=== PATIENT | male | born 1965 | race Caucasian/White ===

== ENCOUNTER 2025-04-30 18:24 | Emergency (ER) | payer BC ==
[2025-04-30 18:34] VITALS: BMI 25.5
[2025-04-30 19:18] LABS: ABSOLUTE IMMATURE GRANULOCYTES 0.04 x10^3/uL (0.0-0.031); BASOPHILS # 0.04 x10^3/uL (0.01-0.08); EOSINOPHIL % 0.1 % (0.8-7.0); EOSINOPHILS # 0.01 x10^3/uL (0.04-0.54); HEMATOCRIT 43.5 % (40.1-51.0); HEMOGLOBIN 14.3 g/dL (13.7-17.5); MCHC 32.9 g/dl (32.3-36.5); MEAN CELL VOLUME 86.5 fl (79.0-92.2); MEAN PLT VOLUME 8.9 fl (9.4-12.4); MONOCYTE # 1.16 x10^3/uL (0.30-0.82); MONOCYTE % 9.1 % (5.3-12.2); PLATELET COUNT 208 x10^3/uL (163-337); RDW 12.6 % (12.2-16.1)
[2025-04-30 19:27] LABS: INR 1.06 (0.83-1.09); PROTHROMBIN TIME (PATIENT) 11.7 SEC (9.7-13.0)
[2025-04-30] MEDS ORDERED: DEXAMETHASONE SOD PHOSPHATE 10 MG/1 ML VIAL ONE (19:29)
[2025-04-30 19:30] LABS: ACTIVATED PTT 35.9 SECONDS (25.2-36.5)
[2025-04-30] MEDS ORDERED: ACETAMINOPHEN INJECTION 100 ML ONE (19:30)
[2025-04-30] MEDS: DEXAMETHASONE SOD PHOSPHATE 10 MG/1 ML VIAL IVPUSH ONE (19:37)
[2025-04-30] MEDS: ACETAMINOPHEN 1000 MG/100 ML BAG IVPB ONE (19:37)
[2025-04-30 19:44] LABS: THROAT:GRP A STREP NOT DETECTED (NOTDETECTED)
[2025-04-30 19:55] LABS: POTASSIUM 3.6 mmol/L (3.5-5.1)
[2025-04-30 19:57] LABS: CALCIUM 9.6 mg/dL (8.5-10.1)
[2025-04-30 19:58] LABS: ALBUMIN 3.8 g/dl (3.4-5.0); BLOOD UREA NITROGEN 7.6 mg/dL (7-18)
[2025-04-30 20:01] LABS: CREATININE 0.8 mg/dL (0.55-1.3)
[2025-04-30 20:02] LABS: BILIRUBIN,TOTAL 0.6 mg/dL (0.2-1)
[2025-04-30 20:03] LABS: TOT PROT 7.4 g/dl (6.4-8.2)
[2025-04-30] MEDS ORDERED: KETOROLAC TROMETHAMINE 30 MG/1 ML VIAL ONE (20:43)
[2025-04-30] MEDS: KETOROLAC TROMETHAMINE 30 MG/1 ML VIAL IVPUSH ONE (21:05)
[2025-04-30] MEDS: CLINDAMYCIN 600MG PREMIX IVPB 600 MG/50 ML BAG IVPB ONE (21:28)
[2025-04-30 22:38] VITALS: BP 137/82; PULSE 61; RESP 18; TEMP 99.1
== END 2025-04-30 23:05 | disposition short-term general hospital (02) ==
LOC: JERFT 18:24 → JER 18:24 → JERFT 23:05
PROC: 3E03329 Introduction of Other Anti-infective into Peripheral Vein, Percutaneous Approach (ICD-10-PCS; principal; 2025-04-30)
PROC: 3E033NZ Introduction of Analgesics, Hypnotics, Sedatives into Peripheral Vein, Percutaneous Approach (ICD-10-PCS; 2025-04-30)
PROC: 3E033GC Introduction of Other Therapeutic Substance into Peripheral Vein, Percutaneous Approach (ICD-10-PCS; 2025-04-30)
PROC: 3E0333Z Introduction of Anti-inflammatory into Peripheral Vein, Percutaneous Approach (ICD-10-PCS; 2025-04-30)
DX: J36 Peritonsillar abscess (principal); R13.10 Dysphagia, unspecified
CPT/HCPCS: 0241U-QW; 36415; 70491-TC; 80053; 85025; 85610; 85730; 87651; 99285-25; J1100